=== PATIENT | male | born 1995 | race Caucasian/White ===

== ENCOUNTER 2022-06-21 18:10 | Observation (INO) | payer OTHER, BC ==
[2022-06-21] MEDS ORDERED: HYDROmorphone 0.5 MG/0.5 ML Syringe ONE (18:31)
[2022-06-21] MEDS ORDERED: HYDROmorphone 0.5 MG/0.5 ML Syringe IVPUSH ONE ×2 (18:31→19:54)
[2022-06-21] MEDS ORDERED: Sodium Chloride 0.9% 1,000 ML IV SCH (18:45)
[2022-06-21 19:07] LABS: ESTIMATED GFR 104 mL/min (>60)
[2022-06-21] MEDS: Sodium Chloride 0.9% 1,000 ML IV SCH (23:32)
[2022-06-22] MEDS ORDERED: Ondansetron 4 MG/2 ML SDV IVPUSH PRN (00:07)
[2022-06-22] MEDS: HYDROmorphone 0.5 MG/0.5 ML Syringe IVPUSH PRN ×4 (00:23→08:08)
[2022-06-22] MEDS ORDERED: Sodium Chloride 0.9% 10 ML SDV FLUSH ONE (01:17)
[2022-06-22] MEDS ORDERED: Iopamidol 612 MG/ML 100 ML Bottle IVPUSH ONE (01:17)
[2022-06-22] MEDS: Sodium Chloride 0.9% 1,000 ML IV SCH (08:07)
[2022-06-22] MEDS ORDERED: oxyCODONE 5 MG Tab PO ONE (08:31)
[2022-06-22] MEDS ORDERED: Ketorolac 30 MG/ML SDV IVPUSH SCH (09:00)
[2022-06-22] MEDS ORDERED: Methocarbamol 500 MG Tab PO SCH (09:00)
[2022-06-22] MEDS ORDERED: Acetaminophen 325 MG Tab PO SCH (12:00)
== END 2022-06-22 14:30 | disposition home or self-care (01) ==
LOC: JD.ED 18:10 → JD.ICU 21:22 → UNDOADMOB 21:22
PROVIDERS: ADMIT Internal Medicine Critical Care Medicine; ATTEND Surgery
DX: R58 Hemorrhage, not elsewhere classified (principal); R10.9 Unspecified abdominal pain; F17.210 Nicotine dependence, cigarettes, uncomplicated; V89.2XXA Person injured in unspecified motor-vehicle accident, traffic, initial encounter; Z79.899 Other long term (current) drug therapy; Z86.16 Personal history of COVID-19
CPT/HCPCS: 36415; 70450; 70450-26; 71045; 71045-26; 71260; 71260-26; 72125; 72125-26; 74177; 74177-26; 80053; 85025; 96361; 96374; 96375; 96376; 99285-25; A9270-GY; G0378; J1170; J1885; J2405; J3490; J7030; Q9967